=== PATIENT | male | born 1990 | race American Indian/Alaskan Native ===

== ENCOUNTER 2017-04-11 00:25 | Emergency (ER) | payer SELFPAY ==
[2017-04-11 00:35] VITALS: BP 113/79
== END 2017-04-11 12:14 | disposition left against medical advice (07) ==
LOC: ED 00:25
DX: Z53.21 Procedure and treatment not carried out due to patient leaving prior to being seen by health care provider (principal)

== ENCOUNTER 2017-04-13 14:10 | Emergency (ER) | payer OTHER ==
[2017-04-13 21:35] VITALS: BP 112/75
--- NOTE | 2017-04-13 22:33 | Emergency Department Report ---
- General Chief complaint: Extremity Injury, Lower Stated complaint: FOOT INFECTION Time Seen by Provider: 04/13/17 22:26 Source: patient Mode of arrival: Ambulatory Limitations: No Limitations - History of Present Illness Initial comments: 27M PMH Syphilis p/w c/o 3 weeks of rash to hands and feet. Denies fevers chills nausea vomiting generalized malaise abdominal pain chest pain palpitations. States that rash is slightly itchy. States that he had tiny amount of purulent drainage from small blister on left foot. Denies rash to any other body parts other than palms and soles of feet. Patient is awake alert and oriented 3 does not appear to be in acute distress. Denies any difficulty ambulating. Fully lucid and cooperative accompanied by family members at bedside. Denies any rash or lesions on penis or genitals. States he is currently sexually active. States he was treated for syphilis 3 years ago in [place]. complaint: rash Location: L hand, R hand, L foot, R foot Severity: moderate Quality: other (itching) Associated symptoms: itching Treatments Prior to Arrival: none - Related Data Previous Rx's Medication Instructions Recorded Last Taken Type Clotrimazole [Athlete's Foot] 60 gm TP BID #1 cream..g. 04/13/17 Unknown Rx Allergies Allergy/AdvReac Type Severity Reaction Status Date / Time No Known Allergies Allergy Verified 04/11/17 00:39 Abscess Boil HPI - HPI Chief Complaint: Extremity Injury, Lower Stated Complaint: FOOT INFECTION Time Seen by Provider: 04/13/17 22:26 Home Medications: Previous Rx's Medication Instructions Recorded Last Taken Type Clotrimazole [Athlete's Foot] 60 gm TP BID #1 cream..g. 04/13/17 Unknown Rx Allergies/Adverse Reactions: Allergies Allergy/AdvReac Type Severity Reaction Status Date / Time No Known Allergies Allergy Verified 04/11/17 00:39 ED Review of Systems ROS: Stated complaint: FOOT INFECTION Other details as noted in HPI Constitutional: denies: chills, fever Eyes: denies: eye pain, eye discharge, vision change ENT: denies: ear pain, throat pain Respiratory: denies: cough, shortness of breath, wheezing Cardiovascular: denies: chest pain, palpitations Endocrine: no symptoms reported Gastrointestinal: denies: abdominal pain, nausea, diarrhea Genitourinary: denies: urgency, dysuria Musculoskeletal: denies: back pain, joint swelling, arthralgia Skin: as per HPI, rash, lesions (b/l palms and soles of feet) Neurological: denies: headache, weakness, paresthesias Psychiatric: denies: anxiety, depression Hematological/Lymphatic: denies: easy bleeding, easy bruising ED Past Medical Hx - Past Medical History Previous Medical History?: Yes Additional medical history: left foot ulcer - Surgical History Past Surgical History?: No - Social History Smoking Status: Current Every Day Smoker Substance Use Type: Alcohol, Marijuana - Medications Home Medications: Home Medications Medication Instructions Recorded Confirmed Last Taken Type Clotrimazole [Athlete's Foot] 60 gm TP BID #1 cream..g. 04/13/17 Unknown Rx ED Physical Exam - General Limitations: No Limitations General appearance: alert, in no apparent distress - Head Head exam: Present: atraumatic, normocephalic - Eye Eye exam: Present: normal appearance, PERRL, EOMI - ENT ENT exam: Present: mucous membranes moist - Neck Neck exam: Present: normal inspection - Respiratory Respiratory exam: Present: normal lung sounds bilaterally. Absent: respiratory distress - Cardiovascular Cardiovascular Exam: Present: regular rate, normal rhythm. Absent: systolic murmur, diastolic murmur, rubs, gallop - GI/Abdominal GI/Abdominal exam: Present: soft, normal bowel sounds - Rectal Rectal exam: Present: deferred - Extremities Exam Extremities exam: Present: normal inspection - Back Exam Back exam: Present: normal inspection - Neurological Exam Neurological exam: Present: alert, oriented X3, CN II-XII intact, normal gait - Psychiatric Psychiatric exam: Present: normal affect, normal mood - Skin Skin exam: Present: warm, dry, intact, normal color. Absent: rash - Expanded Skin Exam Expanded Type of lesion: Present: rash (patient has maculopapular rash on bilateral palms and soles. No visible cellulitis no erythema no distinct abscess.) Distribution of rash: RUE, LUE, RLE, LLE Description of rash: Present: blisters ED Course Vital Signs 04/13/17 04/13/17 14:17 21:34 Temperature 98 F 98.9 F Pulse Rate 94 H 90 Respiratory 16 18 Rate Blood Pressure 108/77 Blood Pressure 112/75 [Right] O2 Sat by Pulse 98 100 Oximetry ED Medical Decision Making - Medical Decision Making A/P: Primary or secondary stage syphilis rash, possible fungal lesions feet 1- case discussed with Dr. Mejia, patient to be referred to health department for workup and treatment of possible primary or secondary stage syphilis. Patient agreed to follow-up as an outpatient and I gave him information for [facility]- Empiric treatment with clotrimazole topically 3- follow-up with [facility] and primary care Critical care attestation.: If time is entered above; I have spent that time in minutes in the direct care of this critically ill patient, excluding procedure time. ED Disposition Clinical Impression: Rash of secondary syphilis, Tinea pedis of both feet Disposition: TO HOME OR SELFCARE Is pt being admited?: No Does the pt Need Aspirin: No Condition: Stable Instructions: Syphilis (ED), Tinea Pedis (ED), Safe Sex (ED) Prescriptions: Clotrimazole [Athlete's Foot] 60 gm TP BID #1 cream..g. Referrals: VALENCIA LAI MD [Primary Care Provider] - 3-5 Days [facility] [Outside] - 3-5 Days [facility] [Outside] - 3-5 Days Time of Disposition: 22:31
== END 2017-04-13 22:46 | disposition home or self-care (01) ==
LOC: ED 14:10
DX: A53.9 Syphilis, unspecified (principal); B35.3 Tinea pedis; F17.200 Nicotine dependence, unspecified, uncomplicated; F12.10 Cannabis abuse, uncomplicated
CPT/HCPCS: 99282